=== PATIENT | male | born 1945 | race Caucasian/White ===

== ENCOUNTER 2016-07-18 05:57 | Day surgery (SDC) | payer MEDICARE, BC ==
[2016-07-18] MEDS ORDERED: Midazolam 1 MG/ML 2 ML SDV ONE (06:17)
[2016-07-18] MEDS ORDERED: fentaNYL 100 MCG/2 ML SDV ONE (06:17)
[2016-07-18] MEDS ORDERED: Dextrose 5%-0.45% NaCl 1,000 ML IV SCH (06:30)
[2016-07-18] MEDS ORDERED: Sodium Chloride 0.9% 10 ML Syringe FLUSH PRN (06:30)
[2016-07-18] MEDS ORDERED: fentaNYL 100 MCG/2 ML SDV IV ONE ×3 (07:02→15:31)
[2016-07-18] MEDS ORDERED: Midazolam 1 MG/ML 2 ML SDV IV ONE ×4 (07:02→15:31)
[2016-07-18 09:52] VITALS: BP 130/73
--- NOTE | 2016-07-18 10:51 | OR ---
DATE: 07/18/2016 PROCEDURE: Esophagogastroduodenoscopy and multiple pinch biopsies. INSTRUMENT USED: GIF-H180 Olympus video panendoscope. PREMEDICATIONS: Fentanyl 100 mcg intravenous, Versed 2 mg intravenous. The procedure was done under pulse oximetry, BP recording, and playground monitor. INDICATION: The patient with persistent cough as well as chest discomfort, unexplained, and not responsive to medical measures. Esophagogastroduodenoscopy is performed for detection of any active erosive lesions, Ray esophagus and/or malignancy also under consideration, H. pylori status to be determined, endoscopic hemostasis therapy if needed. DESCRIPTION OF PROCEDURE: The scope was passed with ease. Adequate visualization of the esophagus was made from proximal to distal areas. No upper esophageal lesions identified. No distal esophageal stricture. No uphill or downhill esophageal varices. No Laura-Feliciano tear. No evidence of erosive esophagitis by Platte criteria. No esophageal polyp or tumor mass identified. Z-line was seen at around 40 cm distal to the oral verge, configuration consistent with grade 1 by ZAP classification. No proximal gastric varices noted. Gastric fundus examination by retroflexion showed no polypoid lesions. No gastric ulcer, malignant mass, or vascular ectasia identified. Duodenal bulb showed no ulcer. Visualized second part of the duodenum was unremarkable. Multiple pinch biopsies were taken from the gastric antrum and proximal body and sent for PyloriTek test for H. pylori, and if negative in an hour, other tissues to be sent for histopathology. No bleeding was noted from any of the visualized areas at the completion of examination. Photographs were taken of the duodenal bulb, gastric antrum, fundus, and distal esophagus. IMPRESSION: Normal study. The patient tolerated the procedure well. [facility] /[id number]
== END 2016-07-18 09:15 | disposition home or self-care (01) ==
LOC: DL.ENDO 05:57
PROVIDERS: ATTEND Internal Medicine Gastroenterology
DX: K29.50 Unspecified chronic gastritis without bleeding (principal); F41.1 Generalized anxiety disorder; E66.9 Obesity, unspecified; E78.5 Hyperlipidemia, unspecified; I12.0 Hypertensive chronic kidney disease with stage 5 chronic kidney disease or end stage renal disease; N18.9 Chronic kidney disease, unspecified; Z98.890 Other specified postprocedural states; Z86.010 Personal history of colon polyps; Z79.899 Other long term (current) drug therapy
CPT/HCPCS: 43239; 87077; J2250; J3010; J7042; 88305

== ENCOUNTER 2017-07-26 05:55 | Day surgery (SDC) | payer MEDICARE, BC ==
[2017-07-26] MEDS ORDERED: Sodium Chloride 0.9% 10 ML Syringe FLUSH PRN (06:00)
[2017-07-26] MEDS ORDERED: Dextrose 5%-0.45% NaCl 1,000 ML IV SCH (06:00)
[2017-07-26] MEDS ORDERED: Midazolam 1 MG/ML 2 ML SDV ONE (06:15)
[2017-07-26] MEDS ORDERED: fentaNYL 100 MCG/2 ML SDV ONE (06:16)
[2017-07-26] MEDS ORDERED: fentaNYL 100 MCG/2 ML SDV IV ONE ×4 (06:59→07:12)
[2017-07-26] MEDS ORDERED: Midazolam 1 MG/ML 2 ML SDV IV ONE ×6 (07:01→07:08)
--- NOTE | 2017-07-26 09:45 | OR ---
DATE: 07/26/2017 PROCEDURE: Total colonoscopy. INSTRUMENTS USED: CF-H180 [place] Olympus video colonoscope and Olympus distal detachment device. PREMEDICATIONS: Fentanyl 150 mcg intravenous, Versed 2 mg intravenous. Nasal O2 cannula. The procedure was done under pulse oximetry, BP recording, and drums teacher. INDICATION: The patient with previous colonic tubular adenoma. Surveillance colonoscopic examination is done for detection of any polypoid lesions and removal, endoscopic hemostasis therapy if needed. DESCRIPTION OF PROCEDURE: Initial rectal exam showed external hemorrhoidal tags. Rigid anoscopy showed small internal hemorrhoids without bleeding from them. The colonoscope was passed with ease. Numerous scattered diverticula were noted in the distal left colon along with deformity. The scope was passed with ease up to the ileocecal area. Photographs were taken of the normal-appearing cecum identified by double-bulged ileocecal folds. The bowel preparation was found to be adequate. No bleeding was noted from any of the visualized areas at the commencement of the examination. No stricture. No vascular ectasia. No large isolated ulcerations seen. No evidence of diffuse inflammatory bowel disease in the form of friability, contact bleeding, or ulcerations. No polyp or tumor mass identified. Probing the proximal sides of folds and flexures, using adequate distention and clearing up the stool material, withdrawal of the scope was made. [id number] time over 6 minutes. No bleeding was noted from any of the visualized areas at the completion of examination. IMPRESSION: 1. External and internal hemorrhoids. 2. Diverticulosis. The patient tolerated the procedure well. [facility] /[id number]
[2017-07-26 10:19] VITALS: BP 128/83
== END 2017-07-26 09:24 | disposition home or self-care (01) ==
LOC: DL.ENDO 05:55
PROVIDERS: ATTEND Internal Medicine Gastroenterology
DX: Z12.11 Encounter for screening for malignant neoplasm of colon (principal); Z86.010 Personal history of colon polyps; K57.30 Diverticulosis of large intestine without perforation or abscess without bleeding; K64.8 Other hemorrhoids; K64.4 Residual hemorrhoidal skin tags; N40.0 Benign prostatic hyperplasia without lower urinary tract symptoms; E66.09 Other obesity due to excess calories; R09.89 Other specified symptoms and signs involving the circulatory and respiratory systems; N18.9 Chronic kidney disease, unspecified; M19.90 Unspecified osteoarthritis, unspecified site; F41.1 Generalized anxiety disorder
CPT/HCPCS: J2250; J3010; J7042

== ENCOUNTER 2023-10-02 09:39 | Day surgery (SDC) | payer MEDICARE, BC ==
[2023-10-02] MEDS ORDERED: Acetaminophen 325 MG Tab PO PRN (09:45)
[2023-10-02] MEDS ORDERED: Ondansetron 4 MG/2 ML SDV IVPUSH PRN (09:45)
[2023-10-02] MEDS ORDERED: Acetaminophen/Codeine 300-30 MG Tab PO PRN (09:45)
[2023-10-02] MEDS: Sodium Chloride 0.9% 10 ML Syringe FLUSH PRN (10:16)
[2023-10-02] MEDS: Proparacaine 0.5% Ophth Soln 15 ML Bottle EYERT ONE ×2 (10:17→10:39)
[2023-10-02] MEDS: Moxifloxacin 0.5% Ophth Soln 3 ML Bottle EYERT ONE (10:18)
[2023-10-02] MEDS: Povidone-Iodine 5% Sterile Ophth Soln 30 ML Bottle EYERT ONE ×2 (10:19→10:41)
[2023-10-02] MEDS: Tropicamide 1% Ophth Soln 15 ML Bottle EYERT ONE (10:20)
[2023-10-02] MEDS: Phenylephrine 10% Ophth Soln 5 ML Bot EYERT ONE (10:21)
[2023-10-02] MEDS: Timolol Maleate 0.5% Ophth Soln 5 ML Bottle EYERT ONE (10:21)
[2023-10-02] MEDS: Cataract Ophth Solution EYERT ONE (10:22)
[2023-10-02] MEDS: Lidocaine 1% 30 ML SDV ONE (10:47)
[2023-10-02] MEDS: Vancomycin 500 MG SDV EYERT ONE (10:47)
[2023-10-02] MEDS: Diclofenac Sodium 0.1% Ophth Soln 5 ML Bottle EYERT ONE ×2 (10:48→11:02)
[2023-10-02] MEDS: Apraclonidine 0.5% Ophth Soln 5 ML Bot EYERT ONE ×2 (10:48→11:02)
[2023-10-02] MEDS: Dexamethasone/Neomycin/Polymyxin B Ophth Oint 3.5 GM Tube EYERT ONE ×2 (10:49→11:02)
[2023-10-02] MEDS: Dexamethasone 4 MG/ML SDV ONE (10:54)
[2023-10-02 11:49] VITALS: BP 125/78; PULSE 50
== END 2023-10-02 11:56 | disposition home or self-care (01) ==
LOC: DL.SDS 09:39
PROVIDERS: ATTEND Ophthalmology
DX: H25.811 Combined forms of age-related cataract, right eye (principal); H40.1111 Primary open-angle glaucoma, right eye, mild stage; E66.09 Other obesity due to excess calories; E78.5 Hyperlipidemia, unspecified; I12.9 Hypertensive chronic kidney disease with stage 1 through stage 4 chronic kidney disease, or unspecified chronic kidney disease; N18.31 Chronic kidney disease, stage 3a; G47.33 Obstructive sleep apnea (adult) (pediatric); Z68.32 Body mass index [BMI] 32.0-32.9, adult; Z79.899 Other long term (current) drug therapy; Z79.82 Long term (current) use of aspirin; Z88.8 Allergy status to other drugs, medicaments and biological substances
CPT/HCPCS: A9270-GY; J1100; J3370; J3490

== ENCOUNTER 2023-11-20 08:25 | Day surgery (SDC) | payer MEDICARE, BC ==
[~2023-11-20 08:25] MED LIST: Acetaminophen 325 MG Tab PO PRN; Acetaminophen/Codeine 300-30 MG Tab PO PRN; Cataract Ophth Solution EYELF ONE; Moxifloxacin 0.5% Ophth Soln 3 ML Bottle EYELF ONE; Ondansetron 4 MG/2 ML SDV IVPUSH PRN; Phenylephrine 10% Ophth Soln 5 ML Bot EYELF ONE; Povidone-Iodine 5% Sterile Ophth Soln 30 ML Bottle EYELF ONE; Proparacaine 0.5% Ophth Soln 15 ML Bottle EYELF ONE; Sodium Chloride 0.9% 10 ML Syringe FLUSH PRN; Timolol Maleate 0.5% Ophth Soln 5 ML Bottle EYELF ONE; Tropicamide 1% Ophth Soln 15 ML Bottle EYELF ONE
[2023-11-20] MEDS ORDERED: Acetaminophen 325 MG Tab PO PRN (08:30)
[2023-11-20] MEDS ORDERED: Acetaminophen/Codeine 300-30 MG Tab PO PRN (08:30)
[2023-11-20] MEDS ORDERED: Ondansetron 4 MG/2 ML SDV IVPUSH PRN (08:30)
[2023-11-20] MEDS: Sodium Chloride 0.9% 10 ML Syringe FLUSH PRN (08:54)
[2023-11-20] MEDS: Moxifloxacin 0.5% Ophth Soln 3 ML Bottle EYELF ONE (08:55)
[2023-11-20] MEDS: Povidone-Iodine 5% Sterile Ophth Soln 30 ML Bottle EYELF ONE ×2 (08:55→09:21)
[2023-11-20] MEDS: Proparacaine 0.5% Ophth Soln 15 ML Bottle EYELF ONE ×2 (08:55→09:21)
[2023-11-20] MEDS: Tropicamide 1% Ophth Soln 15 ML Bottle EYELF ONE (08:56)
[2023-11-20] MEDS: Timolol Maleate 0.5% Ophth Soln 5 ML Bottle EYELF ONE (08:56)
[2023-11-20] MEDS: Phenylephrine 10% Ophth Soln 5 ML Bot EYELF ONE (08:56)
[2023-11-20] MEDS: Cataract Ophth Solution EYELF ONE (08:57)
[2023-11-20] MEDS: Diclofenac Sodium 0.1% Ophth Soln 5 ML Bottle EYELF ONE (09:21)
[2023-11-20] MEDS: Apraclonidine 0.5% Ophth Soln 5 ML Bot EYELF ONE (09:29)
[2023-11-20] MEDS: Lidocaine 1% 30 ML SDV ONE (09:32)
[2023-11-20] MEDS: Dexamethasone/Neomycin/Polymyxin B Ophth Oint 3.5 GM Tube EYELF ONE (09:32)
[2023-11-20] MEDS: Vancomycin 500 MG SDV EYELF ONE (09:33)
[2023-11-20] MEDS: Acetylcholine 20 MG/2 ML Intraocular Inj Kit EYELF ONE (09:33)
[2023-11-20] MEDS: Chondroitin Sulfate/Hyaluronate Sodium Ophth Inj 0.5 ML Syringe IOCULAR ONE (09:34)
[2023-11-20 10:12] VITALS: BP 127/69; PULSE 69
== END 2023-11-20 10:12 | disposition home or self-care (01) ==
LOC: DL.SDS 08:25
PROVIDERS: ATTEND Ophthalmology
DX: H25.812 Combined forms of age-related cataract, left eye (principal); H40.1121 Primary open-angle glaucoma, left eye, mild stage; E66.09 Other obesity due to excess calories; E78.5 Hyperlipidemia, unspecified; N18.32 Chronic kidney disease, stage 3b; D63.1 Anemia in chronic kidney disease; G47.33 Obstructive sleep apnea (adult) (pediatric); Z79.899 Other long term (current) drug therapy; Z79.82 Long term (current) use of aspirin; Z68.32 Body mass index [BMI] 32.0-32.9, adult
CPT/HCPCS: 66991; A9270; C1783; J3370; J3490

== ENCOUNTER 2024-10-15 05:54 | Day surgery (SDC) | payer MEDICARE, BC ==
[~2024-10-15 05:54] MED LIST changes: -Acetaminophen 325 MG Tab PO PRN; -Acetaminophen/Codeine 300-30 MG Tab PO PRN; -Cataract Ophth Solution EYELF ONE; -Moxifloxacin 0.5% Ophth Soln 3 ML Bottle EYELF ONE; -Ondansetron 4 MG/2 ML SDV IVPUSH PRN; -Phenylephrine 10% Ophth Soln 5 ML Bot EYELF ONE; -Povidone-Iodine 5% Sterile Ophth Soln 30 ML Bottle EYELF ONE; -Proparacaine 0.5% Ophth Soln 15 ML Bottle EYELF ONE; +Propofol 200 MG/20 ML SDV ONE; -Sodium Chloride 0.9% 10 ML Syringe FLUSH PRN; -Timolol Maleate 0.5% Ophth Soln 5 ML Bottle EYELF ONE; -Tropicamide 1% Ophth Soln 15 ML Bottle EYELF ONE
[2024-10-15] MEDS ORDERED: Lactated Ringers 1,000 ML IV ONE (05:55)
[2024-10-15] MEDS ORDERED: Propofol 200 MG/20 ML SDV IV ONE (05:55)
[2024-10-15] MEDS: Lactated Ringers 1,000 ML IV SCH (06:26)
[2024-10-15 12:06] VITALS: BP 125/68; PULSE 72
== END 2024-10-15 09:15 | disposition home or self-care (01) ==
LOC: DL.ENDO 05:54
PROVIDERS: ATTEND Internal Medicine Gastroenterology
DX: Z12.11 Encounter for screening for malignant neoplasm of colon (principal); D12.2 Benign neoplasm of ascending colon; D12.4 Benign neoplasm of descending colon; K64.8 Other hemorrhoids; K57.30 Diverticulosis of large intestine without perforation or abscess without bleeding; E66.9 Obesity, unspecified; I12.9 Hypertensive chronic kidney disease with stage 1 through stage 4 chronic kidney disease, or unspecified chronic kidney disease; N18.30 Chronic kidney disease, stage 3 unspecified; Z79.899 Other long term (current) drug therapy; Z79.01 Long term (current) use of anticoagulants; Z86.0100 Personal history of colon polyps, unspecified; Z68.31 Body mass index [BMI] 31.0-31.9, adult
CPT/HCPCS: 88305; J2003; J2704; J7120